=== PATIENT | female | born 1960 | race Caucasian/White ===

== ENCOUNTER → 2017-08-29 | Outpatient (CLI) | payer OTHER ==
--- NOTE | 2017-08-29 13:14 | MRI ---
MRI lumbar spine without contrast Indication: Lower back pain Technique: Multisequence, multiplanar MR images of the lumbar spine were obtained without IV contrast . Comparison: None Findings: Vertebral body heights, alignment and marrow signal are normal. No acute fracture, subluxat ion or suspicious osseous lesion is identified. The conus terminates normally at L1-L2. The cauda equ davin is unremarkable. The imaged paraspinal soft tissues demonstrates no gross unexpected findings. T12-L1, L1-L2, L2-L3: Unremarkable L3-L4: Mild broad-based disc bulge and facet arthropathy without significant canal or foraminal steno sis. L4-L5: Mild broad-based disc bulge and facet arthropathy without significant canal or foraminal steno sis. L5-S1: Mild broad-based disc bulge and facet arthropathy without significant canal or foraminal steno sis. Impression: Very mild degenerative changes of the lower lumbar spine, as detailed above. No high-grade canal or n eural foraminal compromise identified. Reported By:
--- NOTE | 2017-08-29 15:50 | MRI ---
MRI SPINE CERVICAL WITHOUT CONTRAST CLINICAL HISTORY: 57-year-old female with neck pain, numbness and tingling. COMPARISON: None. Technique: Multiplanar, multisequence MRI images of the cervical spine were obtained without the adm inistration of intravenous contrast. FINDINGS: Straightening of the cervical lordosis as imaged. Alignment is maintained. The craniocervic al junction is normal. Vertebral body and disc space height are maintained. Vertebral marrow and inte rvertebral disc space signal are normal. Cord signal is normal. The visualized posterior fossa stru ctures are normal. C2-C3: No central canal or neural foraminal stenosis. C3-C4: No central canal or neural foraminal stenosis. C4-C5: Broad-based disc osteophyte complex narrows canal 9.1 mm with mild flattening of the ventral c ord without cord signal change. No neural foraminal stenosis. C5-C6: No central canal or neural foraminal stenosis. C6-C7: Broad-based disc osteophyte complex with a right central component. Central canal is narrowed to 9.4 mm. There is mild right ventral cord flattening without signal change. No neural foraminal stanislav nosis. C7-T1: No central canal or neural foraminal stenosis. Paraspinous soft tissues are unremarkable. IMPRESSION: 1. 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 2. See level by level descriptions above. Reported By:
== END | disposition home or self-care (01) | DRG 552 ==
LOC: RAD 11:21
PROVIDERS: ATTEND Internal Medicine
DX: M54.2 Cervicalgia (principal); M54.5 Low back pain; M54.17 Radiculopathy, lumbosacral region
CPT/HCPCS: 72141; 72148